=== PATIENT | female | born 1965 | race Caucasian/White ===

== ENCOUNTER 2022-12-25 05:59 | Inpatient (IN) ==
--- NOTE | 2022-12-04 14:22 | PAT Medication Instructions ---
Medication Instructions Date of Service December 04, 2022 Home Medications albuterol sulfate 90 mcg/actuation aerosol inhaler 1 inh inhalation QID PRN allopurinol 300 mg tablet 300 mg PO QAM alprazolam 1 mg tablet (Xanax) 1 mg PO TID PRN cyanocobalamin (vitamin B-12) 1,000 mcg tablet 1,000 mcg PO QAM cyclobenzaprine 10 mg tablet 10 mg PO BID duloxetine 60 mg capsule,delayed release (Cymbalta) 60 mg PO BID fluticasone propionate 50 mcg/actuation nasal spray,suspension 2 spray intranasa l QAM folic acid 1 mg tablet 1 mg PO QAM hydroxyzine HCl 25 mg tablet 25 mg PO BID PRN lisinopril 20 mg-hydrochlorothiazide 12.5 mg tablet 1 tab PO BID loratadine 10 mg tablet (Claritin) 10 mg PO QAM methocarbamol 500 mg tablet 500 mg PO TID multivit with [id number] 18 mg iron-800 mcg-150 mg tablet (Vitamin D3 Complete) 1 tab PO QAM omeprazole 40 mg capsule,delayed release 40 mg PO QAM pregabalin 150 mg capsule (Lyrica) 150 mg PO BID trazodone 100 mg tablet 100 mg PO HS vortioxetine 20 mg tablet (Trintellix) 20 mg PO QAM STOP taking 2 weeks before surgery multivit with [id number] 18 mg iron-800 mcg-150 mg tablet (Vitamin D3 Complete) 1 tab PO QAM DO NOT take the morning of surgery cyanocobalamin (vitamin B-12) 1,000 mcg tablet 1,000 mcg PO QAM cyclobenzaprine 10 mg tablet 10 mg PO BID folic acid 1 mg tablet 1 mg PO QAM lisinopril 20 mg-hydrochlorothiazide 12.5 mg tablet 1 tab PO BID loratadine 10 mg tablet (Claritin) 10 mg PO QAM methocarbamol 500 mg tablet 500 mg PO TID Take morning of surgery With a small sip of water, OTHERWISE NOTHING TO EAT OR DRINK AFTER MIDNIGHT: albuterol sulfate 90 mcg/actuation aerosol inhaler 1 inh inhalation QID PRN(use if needed; please bring with you to hospital day of surgery if possible) allopurinol 300 mg tablet 300 mg PO QAM alprazolam 1 mg tablet (Xanax) 1 mg PO TID PRN(if needed) duloxetine 60 mg capsule,delayed release (Cymbalta) 60 mg PO BID fluticasone propionate 50 mcg/actuation nasal spray,suspension 2 spray intranasal QAM hydroxyzine HCl 25 mg tablet 25 mg PO BID PRN(if needed) omeprazole 40 mg capsule,delayed release 40 mg PO QAM pregabalin 150 mg capsule (Lyrica) 150 mg PO BID vortioxetine 20 mg tablet (Trintellix) 20 mg PO QAM Take evening before surgery albuterol sulfate 90 mcg/actuation aerosol inhaler 1 inh inhalation QID PRN(if needed) alprazolam 1 mg tablet (Xanax) 1 mg PO TID PRN(if needed) cyclobenzaprine 10 mg tablet 10 mg PO BID duloxetine 60 mg capsule,delayed release (Cymbalta) 60 mg PO BID hydroxyzine HCl 25 mg tablet 25 mg PO BID PRN(if needed) lisinopril 20 mg-hydrochlorothiazide 12.5 mg tablet 1 tab PO BID methocarbamol 500 mg tablet 500 mg PO TID pregabalin 150 mg capsule (Lyrica) 150 mg PO BID trazodone 100 mg tablet 100 mg PO HS Other Notes If you have any questions please call us at [phone] or [phone] or [phone] or [phone]
--- NOTE | 2022-12-09 09:38 | Anesthesiology Consultation ---
Date of Service December 09, 2022 Assessment & Plan (1) Encounter for pre-operative examination: - COVID screening: Per assessment on 12/09: No known COVID-19 positive contacts or current COVID-19 related symptoms. Travel screen negative. At surgeon discretion if preop Covid testing being done. - Patient acceptable risk for surgery pending surgeon-ordered PCP preop evaluation (appt 12/14, [facility] - Tadeo Darling/Anna DUNLAP) Chart Review Chart Review: Patient seen in Pre Admission Testing Teaching & Discussion Pre-Anesthesia Teaching/Discussion Notes: Instructed NPO after midnight before surgery,except medications with 15 cc of water. Medication instructions provided according to the PAT guidelines. History Surgery Operation Date: 12/25/22 10:00 Proposed Procedures p L4-S1 Decompression and Fusion, Spinal Cord Monitoring - Prince Mendoza, Height/Weight Height: 5 ft 2 in Weight: 120.9 kg Allergies Allergy/AdvReac Type Severity Reaction Status Date / Time Penicillins Allergy Intermediate Hives Verified 12/04/22 12:12 Medications Home Medications Medication Instructions Recorded Confirmed Last Taken albuterol sulfate 90 mcg/actuation 1 inh inhalation QID PRN Wheezing 12/04/22 12/04/22 Unknown aerosol inhaler allopurinol 300 mg tablet 300 mg PO QAM 12/04/22 12/04/22 Unknown alprazolam 1 mg tablet (Xanax) 1 mg PO TID PRN Anxiety 12/04/22 12/04/22 Unknown cyanocobalamin (vitamin B-12) 1,000 mcg PO QAM 12/04/22 12/04/22 Unknown 1,000 mcg tablet cyclobenzaprine 10 mg tablet 10 mg PO BID 12/04/22 12/04/22 Unknown duloxetine 60 mg capsule,delayed 60 mg PO BID 12/04/22 12/04/22 Unknown release (Cymbalta) fluticasone propionate 50 2 spray intranasal QAM 12/04/22 12/04/22 Unknown mcg/actuation nasal spray,suspension folic acid 1 mg tablet 1 mg PO QAM 12/04/22 12/04/22 Unknown hydroxyzine HCl 25 mg tablet 25 mg PO BID PRN Itching 12/04/22 12/04/22 Unknown lisinopril 20 1 tab PO BID 12/04/22 12/04/22 Unknown mg-hydrochlorothiazide 12.5 mg tablet loratadine 10 mg tablet (Claritin) 10 mg PO QAM 12/04/22 12/04/22 Unknown methocarbamol 500 mg tablet 500 mg PO TID 12/04/22 12/04/22 Unknown multivit with 1 tab PO QAM 12/04/22 12/04/22 Unknown [id number]-#[id number] 18 mg iron-800 mcg-150 mg tablet (Vitamin D3 Complete) omeprazole 40 mg capsule,delayed 40 mg PO QAM 12/04/22 12/04/22 Unknown release pregabalin 150 mg capsule (Lyrica) 150 mg PO BID 12/04/22 12/04/22 Unknown trazodone 100 mg tablet 100 mg PO HS 12/04/22 12/04/22 Unknown vortioxetine 20 mg tablet 20 mg PO QAM 12/04/22 12/04/22 Unknown (Trintellix) Past Medical History Medical History Anemia Anxiety Asthma Atrial fibrillation Dx approximately 30 years ago, monitored by PCP Carpal tunnel syndrome left more than right Depression Fibromyalgia Hyperlipidemia mild > no meds Hypertension Morbid obesity Muscle spasm Neuropathy Feet, fingers Osteopenia Post traumatic stress disorder Presence of neurostimulator Jun 2022 ([facility]), instructed to bring remote DOS Sleep apnea CPAP (compliant) Spinal stenosis Thyroid nodule gets scanned yearly Exercise / Class Metabolic Activity III < 4 Walking/Shop/Light housework Past Surgical History Surgical History H/O removal of cyst from tailbone History of colonoscopy History of repair of rotator cuff right Hx of cervical biopsy Hx of fusion of cervical spine Past Anesthesia History No Hx of Anesthesia Complications and No Family Hx of Anesthesia Complications History of PONV No Hx of PONV and No Hx of Motion Sickness Social History Smoking Status: Former smoker Do You Dip or Chew Tobacco: No Smoking End Date: Quit 30 years ago Hx Alcohol Use: No Hx Substance Use: No substance use type: does not use Review of Systems Patient denies chest pain, shortness of breath, fever, chills, cough, wheezing, palpitations. Physical Exam Vital Signs VITALS BP 137/81 P 102 TEMP 98.0 SP02 99%RA RESP 18 PHYSICAL Mildly decreased cervical extension range of motion. Full TMJ range of motion. TMD 3 finger breaths (Difficult to palpate) Mallampati Score 3 Dentition: full upper denture, partial lower Lungs: clear throughout to auscultation Cardiac: regular rate and rhythm, no murmurs noted Spine: normal Carotid arteries: negative bruit Extremities: no edema Very thick neck Lab Results Anesthesia Preop Results Results Anesthesia Widget: WBC 8.82 K/ul (4.8-10.8) 12/09/22 Hgb 15.0 g/dl (12.0-16.0) 12/09/22 Hct 43.4 % (34.1-44.9) 12/09/22 Plt 267 K/uL (130-400) 12/09/22 Na 136 mmol/L (136-145) 12/09/22 K 4.4 mmol/L (3.5-5.1) 12/09/22 Cl 98 mmol/L (98-107) 12/09/22 CO2 30 mmol/L (21-32) 12/09/22 BUN 19 mg/dl (6-23) 12/09/22 Creat 0.80 mg/dl (0.6-1.2) 12/09/22 Glucose Level 147 mg/dl (70-99(Fasting)) H 12/09/22 PT 10.3 Seconds (9.0-12.0) 12/09/22 PTT 27.1 Seconds (21.0-31.0) 12/09/22 INR 1.0 (0.9-1.1) 12/09/22 Urine Color Yellow 12/09/22 Urine Appearance Clear (Clear) 12/09/22 Urine pH 6.5 (4.5-7.5) 12/09/22 Urine Specific [place] 1.013 (1.000-1.030) 12/09/22 Urine Protein Negative (Negative) 12/09/22 Urine Glucose (UA) Negative (Negative) 12/09/22 Urine Ketones Negative (Negative) 12/09/22 Urine Blood Negative (Negative) 12/09/22 Urine Nitrite Negative (Negative) 12/09/22 Urine Bilirubin Negative (Negative) 12/09/22 Urine Urobilinogen Negative (Negative) 12/09/22 Urine Leukocyte Esterase Trace (Negative) H 12/09/22 Urine WBC (Auto) 1-5 /hpf (0-5) 12/09/22 Urine RBC (Auto) 0-4 /hpf (0-4) 12/09/22 Urine Hyaline Casts (Auto) 1-5 /lpf (0-5) 12/09/22 Urine Epithelial Cells (Auto) 20-30 /lpf (0-5) H 12/09/22 Urine Bacteria (Auto) Negative (Negative) 12/09/22 Blood Type B Positive 12/09/22 Antibody Screen NEGATIVE 12/09/22 Testing Electrocardiogram Date: 06/29/22 Sinus tach at 104 bpm. Low voltage QRS. RBBB. Chest X-Ray Date: 06/29/22 FINDINGS: No pneumothorax. No pleural effusions. The cardiac silhouette is normal in size. Cervical spinal fusion hardware is noted. The lungs are clear. IMPRESSION: No acute process. COVID-19 Risk Screen Screening Information COVID-19 Screen Date: 12/09/22 Exposure 21 Days Family/Household +COVID Last 21 Days: No Exposure 10 Days Any COVID Exposure Last 10 Days: No Symptoms Last 10 Days Experienced COVID Sx Last 10 Days: No + COVID 0-90 Days COVID + in Last 0-90 Days: No
[2022-12-25] MEDS ORDERED: GABAPENTIN 600 MG DOSE PO SCH (06:00)
[2022-12-25] MEDS ORDERED: CLINDAMYCIN/D5W 900 MG/50 ML BAG IV SCH (06:00)
[2022-12-25] MEDS ORDERED: ACETAMINOPHEN 500 MG TAB PO SCH (06:00)
[2022-12-25] MEDS ORDERED: LR 15ML/HR IV SCH (06:00)
[2022-12-25] MEDS ORDERED: SUGAMMADEX SODIUM 200 MG/2 ML VIAL IV ONE (06:25)
[2022-12-25] MEDS ORDERED: fentaNYL citrate 100 MCG/2 ML VIAL ONE ×2 (06:37→10:21)
[2022-12-25] MEDS ORDERED: MIDAZOLAM HCL 1 MG/ML 2ML VIAL ONE (06:37)
[2022-12-25] MEDS ORDERED: LIDOCAINE 2% MPF LOCAL 5 ML VIAL INFIL ONE (06:37)
[2022-12-25] MEDS ORDERED: DEXAMETHASONE SOD INJ 4 MG/ML VIAL ONE ×2 (06:37→06:39)
[2022-12-25] MEDS ORDERED: ROCURONIUM BROMIDE 10 MG/ML 5 ML VIAL IV ONE ×3 (06:37→09:20)
[2022-12-25] MEDS ORDERED: PROPOFOL IV EMULSION 10 MG/ML 20 ML VIAL IV ONE (06:37)
[2022-12-25] MEDS ORDERED: LARYING-O-JET KIT (LTA) ONE (06:37)
[2022-12-25] MEDS ORDERED: ATROPINE SULFATE 0.1 MG/ML 10ML SYR IV PRN (07:01)
[2022-12-25] MEDS ORDERED: fentaNYL citrate 100 MCG/2 ML VIAL IV PRN (07:01)
[2022-12-25] MEDS ORDERED: ONDANSETRON INJ 2 MG/ML 2 ML VIAL IV PRN ×2 (07:01→13:27)
[2022-12-25] MEDS ORDERED: ePHEDrine sulfate 50 MG/ML AMP IV PRN (07:01)
[2022-12-25] MEDS ORDERED: DexMEDEtomidine HCL IV 100 MCG/ML VIAL IV ONE (07:02)
[2022-12-25] MEDS ORDERED: ceFAZolin 330 MG/ML 1 GM VIAL ONE (07:24)
[2022-12-25] MEDS ORDERED: BUPIVACAINE/EPINEPHRINE 0.25% 1:200,000 30 ML VIAL ONE (07:24)
--- NOTE | 2022-12-25 07:34 | History & Physical Bridge Note ---
Date of Service December 25, 2022 History & Physical Bridge Note I have examined the patient, reviewed the History & Physical and in the interval since the performance of the History & Physical I have noted the following changes of clinical significance: no changes noted
--- NOTE | 2022-12-25 07:35 | History & Physical Report ---
Date of Service December 25, 2022 Assessment & Plan (1) Neurogenic claudication due to lumbar spinal stenosis: Plan: L4-S1 decompression and fusion History of Present Illness Chief Complaint: Back and leg pain Primary Care Provider: Sammy Barrientos MD This is a 57-year-old female who presents with chronic persistent back and leg pain after failing extensive course of nonoperative care she is here for surgical invention. Allergies Allergy/AdvReac Type Severity Reaction Status Date / Time Penicillins Allergy Intermediate Hives Verified 12/25/22 06:25 Home Medications Medication Instructions Recorded Confirmed Type albuterol sulfate 90 mcg/actuation 1 inh inhalation QID PRN Wheezing 12/04/22 12/25/22 History aerosol inhaler allopurinol 300 mg tablet 300 mg PO QAM 12/04/22 12/25/22 History alprazolam 1 mg tablet (Xanax) 1 mg PO TID PRN Anxiety 12/04/22 12/25/22 History cyanocobalamin (vitamin B-12) 1,000 mcg PO QAM 12/04/22 12/25/22 History 1,000 mcg tablet cyclobenzaprine 10 mg tablet 10 mg PO BID 12/04/22 12/25/22 History duloxetine 60 mg capsule,delayed 60 mg PO BID 12/04/22 12/25/22 History release (Cymbalta) fluticasone propionate 50 2 spray intranasal QAM 12/04/22 12/25/22 History mcg/actuation nasal spray,suspension folic acid 1 mg tablet 1 mg PO QAM 12/04/22 12/25/22 History hydroxyzine HCl 25 mg tablet 25 mg PO BID PRN Itching 12/04/22 12/25/22 History lisinopril 20 1 tab PO BID 12/04/22 12/25/22 History mg-hydrochlorothiazide 12.5 mg tablet (Zestoretic) loratadine 10 mg tablet (Claritin) 10 mg PO QAM 12/04/22 12/25/22 History methocarbamol 500 mg tablet 500 mg PO TID 12/04/22 12/25/22 History multivit with 1 tab PO QAM 12/04/22 12/25/22 History [id number] 18 mg iron-800 mcg-150 mg tablet (Vitamin D3 Complete) omeprazole 40 mg capsule,delayed 40 mg PO QAM 12/04/22 12/25/22 History release pregabalin 150 mg capsule (Lyrica) 150 mg PO BID 12/04/22 12/25/22 History trazodone 100 mg tablet 100 mg PO HS 12/04/22 12/25/22 History vortioxetine 20 mg tablet 20 mg PO QAM 12/04/22 12/25/22 History (Trintellix) Past Med/Surg History Medical History Anemia Anxiety Asthma Atrial fibrillation Dx approximately 30 years ago, monitored by PCP Carpal tunnel syndrome left more than right Depression Fibromyalgia Hyperlipidemia mild > no meds Hypertension Morbid obesity Muscle spasm Neuropathy Feet, fingers Osteopenia Post traumatic stress disorder Presence of neurostimulator Jun 2022 ([facility]), instructed to bring remote DOS Sleep apnea CPAP (compliant) Spinal stenosis Thyroid nodule gets scanned yearly Surgical History H/O removal of cyst from tailbone History of colonoscopy History of repair of rotator cuff right Hx of cervical biopsy Hx of fusion of cervical spine Social History Smoking Status: Former smoker Smoking End Date: Quit 30 years ago; Second Hand Exposure: No; Do You Dip or Chew Tobacco: No; Tobacco Cessation Education Requested by Patient: No Hx Alcohol Use: No Hx Substance Use: No Preferred Language: Gambian Communication Ability: Effective County Nurse Required: No Beliefs That Will Affect Care: None Current Living Situation: Family Other Information That Helps Us Care for You: No Feels Safe at Home: Yes Safety Concerns: Feels Safe At This Time Assistive Devices: Cane, CPAP, Denture - Upper, Denture - Lower and Glasses Physical Exam Physical Exam: Patient is alert and oriented Heart regular rhythm Lungs clear Results & Data Results & Data ([place]) Vital Signs (Past 12 Hours) Vital Signs Temp Pulse Resp BP Pulse Ox O2 Del Method 12/25/22 06:31 36.9 C 109 H 18 161/97 H 94 Room Air 12/25/22 06:31 CPAP
[2022-12-25] MEDS ORDERED: ONDANSETRON INJ 2 MG/ML 2 ML VIAL ONE (08:18)
[2022-12-25] MEDS ORDERED: KETAMINE 50 MG/5 ML SYRINGE ONE ×2 (08:23→11:12)
[2022-12-25] MEDS ORDERED: FLOSEAL HEMOSTATIC MATRIX 10ML TOP ONE (08:33)
[2022-12-25] MEDS ORDERED: ePHEDrine sulfate 50 MG/ML SYR ONE (09:18)
[2022-12-25] MEDS ORDERED: PHENYLEPHRINE 100MCG/ML 5ML SYR ONE (09:18)
[2022-12-25] MEDS ORDERED: PHENYLEPHRINE HCL 10 MG/ML VIAL ONE (09:18)
[2022-12-25] MEDS ORDERED: GLYCOPYRROLATE 0.2 MG/ML VIAL ONE (09:18)
--- NOTE | 2022-12-25 09:56 | Operative Report ---
Post Operative Report Pre & Post Diagnosis Operation Date: 12/25/22 07:45 Pre-Op Diagnosis: Neurogenic Claudication due to Lumbar Spinal Stenosis Spondylolisthesis L4-L5 Morbid obesity Post-Op Diagnosis: Same I identified the patient and participated in the time-out.: Yes Procedure Operation Date: 12/25/22 07:45 Actual Procedures #1 lumbar decompression bilateral medial facetectomies and foraminotomies L3-L4, L4-5 and L5-S1. #2 posterior spinal fusion L4-L5 L5-S1. #3 placement posterior instrumentation L4-L5 L5-S1. #4 interbody fusion L4-L5 L5-S1. #5 placement of Spira 13 x 26 mm cage at L4-5 and 10 x 26 mm cage at L5-S1. #6 placement locally harvested morselized autograft in the posterior gutters. #7 placement of I factor model V toss interbody space and posterior gutters. Surgeon Prince Mendoza, DO [employer] Eliot Ellsworth Estimated Blood Loss 350 Findings See Below Patient is 5 foot 2 weighing over 122 kg with a BMI in excess of 49. Patient's body habitus did contribute to significant technical difficulty requiring her deepest retractors longer instruments in order to perform her procedure. This had at least 50% increased operative time. Specimens None Indications This is a 57-year-old female who presents above-mentioned diagnosis after failed extensive course of nonoperative care she is here for surgical invention. Description of Procedure Patient was met with identified informed consent obtained. Patient was then t aken to the operative suite underwent a patient placed in a prone position on the [place] table top [place]air frame. All bony prominences well-padded as inspected to ensure no external pressure placed upon them. At this time the lumbar spine was prepped and draped in normal sterile fashion. Sharp dissection with assistance of bradycardia was then performed down to and exposing the lamina and transverse processes of L4-L5 and S1 levels bilaterally. From a caudal cephalad fashion complete laminectomy L5 L4 and partial laminectomy L3 was performed including bilateral medial facetectomies and foraminotomies addressing severe spinal stenosis. Pedicle screws were then placed in L4-L5 and S1 levels bilaterally with assistance of fluoroscopy and the properly sized naa placed. By way of a transit foraminal approach and left knee discectomy of L5- S1 was performed endplates curetted to subcortical bleeding bone and a 10 x 26 mm spiral cage filled I factor tapped in position. At the proceeded L4-L5 and again by way of a transforaminal approach and left pleat discectomy was performed endplates curetted to subcortically bone and a 13 x 26 mm spiral cage with I factor tapped the position. The rods were then locked into final position bilaterally. The transverse processes of L for L5 and the sacral ala were burred to subcortically bone. I factor V V testing locally harvested morselized autograft was placed in the posterior gutters. 15 round VLADISLAV drain inserted. The incision was then closed with 1 Vicryl the fascia 2-0 Vicryl subcutaneously and 4 Monocryl for final skin closure. Steri-Strip sterile dressings placed. Patient waken taken to PACU in stable condition. Please note spinal cord monitoring visualized at the procedure no changes noted. Lastly Eliot Ellsworth was present at the entire surgeon while the patient positioning complex portion of the surgery and fascial closure. I attest to the content of the Intraoperative Record and any orders documented therein. Any exceptions are noted below.
--- NOTE | 2022-12-25 10:05 | Fluoroscopy Report ---
FL lumbar spine 2-3V CLINICAL HISTORY: L4-S1 DECOMPRESSION AND FUSION POSSIBLE INTERBODY COMPARISON STUDY: None. FLUOROSCOPY TIME: 31 seconds FLUOROSCOPY IMAGES: 2 EXPOSURE DOSE: 32.4 mGy FINDINGS: Posterior decompression and fusion from L4 through S1 with pedicle screws and rods. Hardwar e appears intact. Disc spacers are placed. IMPRESSION: Fluoroscopic assistance as above. ACT 112: Negative or not required by law. Electronically signed by: Samuel Fisher M.D. 12/25/2022 10:03 AM
[2022-12-25] MEDS: HYDROmorphone INJ 2 MG/ML SYR/VIAL IV PRN ×4 (10:50→11:07)
--- NOTE | 2022-12-25 11:17 | Anesthesiology Progress Note ---
Date of Service December 25, 2022 Anesthesia Post Procedure Vital Signs Vital Signs: Temp Pulse Pulse Resp BP Pulse Ox O2 Del Method 12/25/22 11:08 98 H 14 102/66 99 Nasal Cannula 12/25/22 10:55 97 H 14 113/69 95 Nasal Cannula 12/25/22 10:45 97 H 16 103/76 95 Oxymask 12/25/22 10:35 97 H 18 92/58 L 99 Oxymask 12/25/22 10:28 36.7 C 98 H 17 88/60 L 97 Oxymask 12/25/22 06:31 36.9 C 109 H 18 161/97 H 94 Room Air 12/25/22 06:31 CPAP O2 Flow Rate 12/25/22 11:08 3 12/25/22 10:55 3 12/25/22 10:45 5 12/25/22 10:35 5 12/25/22 10:28 5 12/25/22 06:31 12/25/22 06:31 Pain Intensity Back: Pain Intensity: 6 Transfer of Care Handoff Completed per policy Notes Mental Status: alert / awake / arousable and participated in evaluation Patient Amnestic to Procedure: Yes Nausea / Vomiting: adequately controlled Pain: adequately controlled Airway Patency, RR, SpO2: stable & adequate BP & HR: stable & adequate Hydration State: stable & adequate Anesthetic Complications: no major complications apparent and Pt Satisfied with anesthetic care
[2022-12-25] MEDS ORDERED: MAGNESIUM HYDROXIDE SUSP 30 ML UDC PO PRN (13:27)
[2022-12-25] MEDS ORDERED: METOCLOPRAMIDE HCL INJ 5 MG/ML 2 ML VIAL IV PRN (13:27)
[2022-12-25] MEDS ORDERED: ONDANSETRON 4 MG OD TAB PO PRN (13:27)
[2022-12-25] MEDS ORDERED: SOD PHOSPHATE/SOD BIPHOSPHATE ENEMA 132 ML BTL PR PRN (13:27)
[2022-12-25] MEDS ORDERED: DO NOT ADMINISTER FLU VACCINE PRN (13:27)
[2022-12-25] MEDS ORDERED: HYDROmorphone INJ 0.5 MG/0.5 ML SYR IV PRN (13:27)
[2022-12-25] MEDS ORDERED: ALPRAZolam 0.5 MG TABLET PO PRN (13:27)
[2022-12-25] MEDS ORDERED: ALUMINUM/MAGNESIUM SUSP 30 ML UDC PO PRN (13:27)
[2022-12-25] MEDS ORDERED: FAMOTIDINE 20 MG TAB PO PRN (13:27)
[2022-12-25] MEDS ORDERED: LACTATED RINGER'S 1,000 ML IV SCH (13:27)
[2022-12-25] MEDS ORDERED: hydrOXYzine HCl 25 MG TAB PO PRN (13:27)
[2022-12-25] MEDS ORDERED: ACETAMINOPHEN 1,000 MG/100 ML VIAL IV PRN (13:27)
[2022-12-25] MEDS ORDERED: ACETAMINOPHEN 500 MG TAB PO PRN (13:27)
[2022-12-25] MEDS ORDERED: NALOXONE HCL 0.4 MG/1 ML VIAL/CARP IV PRN (13:27)
[2022-12-25] MEDS ORDERED: diphenhydrAMINE Capsule 25 MG CAP PO PRN (13:27)
[2022-12-25] MEDS ORDERED: DO NOT ADMINISTER PNEUMOCOCCAL VACCINE PRN (13:27)
[2022-12-25] MEDS ORDERED: ALBUTEROL HFA 8 GM INHALER INH PRN (13:27)
[2022-12-25] MEDS ORDERED: LORazepam 2 MG/1 ML VIAL IV PRN (13:27)
[2022-12-25] MEDS ORDERED: bisacodyL 10 MG SUPP PR PRN (13:27)
[2022-12-25] MEDS ORDERED: PROMETHAZINE HCL 12.5 MG in SODIUM CHLORIDE 0.9% 50 ML IV PRN (13:27)
[2022-12-25] MEDS ORDERED: LORazepam 0.5 MG TAB PO PRN (13:27)
--- NOTE | 2022-12-25 14:15 | Hospitalist Consultation ---
Date of Consultation December 25, 2022 Assessment & Plan (1) Neurogenic claudication due to lumbar spinal stenosis: s/p lumbar decompression surgery performed by Dr Mendoza 12/25. Pain/PT/bowel management per primary orthopedic team (2) Lower abdominal pain: Unspecified etiology but ongoing for 2 weeks without change in bowels, nausea, vomiting, melena or urinary symptoms. Negative UA during this time. Continue to monitor with serial assessments. ? related to her back pathology. (3) Sinus tachycardia: Some post operative hypotension in PACU which resolved with IV fluid bolus Appears euvolemic currently. Continue IV fluids as ordered by primary team. EKG confirmed ST Given pre-operative HR also tachycardia suspect this is somewhat related to her anxiety/stress rather than volume status Continue to monitor (4) Anxiety: Continue trazodone 100 mg p.o. at bedtime Continue Trintellix Also on Cymbalta but she reports this is for nerve pain rather than anxiety Takes Xanax 1-2 times a day, will continue as PRN here (5) Hypertension: Did not take antihypertensives this morning. Restart lisinopril tomorrow with hold parameters Restart HCTZ POD#2 with hold parameters (6) Sleep apnea: CPAP HS May use own if family can bring it in (7) Gout: Continue allopurinol 300mg PO daily (8) Seasonal allergies: Continue loratadine 10 mg PO QAM (9) GERD (gastroesophageal reflux disease): Switch omeprazole for pantoprazole per hospital formulary Plan Thank you for the consult. We will continue to follow the patient alongside the primary orthopedic team with a.m. labs tomorrow. History of Present Illness Reason for Consultation: medical management Attending Physician: Prince Mendoza DO History of Present Illness Brittany Reyes is a 57 year old female who presents for elective lumbar decompression surgery performed by Dr Mendoza earlier today. Estimated blood loss 350 mL. She has not yet stood up from surgery and most of her [id number] symptoms were on exertion therefore difficult to assess her change in symptoms at this time. Symptoms prior to surgery include ambulatory dysfunction, muscle spasms, bilateral lumbar radiculopathy and weakness in her legs. Having more numbness on left L5 distribution currently post operatively. Passing flatus. Otherwise no acute concerns or questions. Allergies Allergy/AdvReac Type Severity Reaction Status Date / Time Penicillins Allergy Intermediate Hives Verified 01/27/23 06:25 Home Medications Medication Instructions Recorded Confirmed Type albuterol sulfate 90 mcg/actuation 1 inh inhalation QID PRN Wheezing 12/04/22 12/25/22 History aerosol inhaler allopurinol 300 mg tablet 300 mg PO QAM 12/04/22 12/25/22 History alprazolam 1 mg tablet (Xanax) 1 mg PO TID PRN Anxiety 12/04/22 12/25/22 History cyanocobalamin (vitamin B-12) 1,000 mcg PO QAM 12/04/22 12/25/22 History 1,000 mcg tablet cyclobenzaprine 10 mg tablet 10 mg PO BID 12/04/22 12/25/22 History duloxetine 60 mg capsule,delayed 60 mg PO BID 12/04/22 12/25/22 History release (Cymbalta) fluticasone propionate 50 2 spray intranasal QAM 12/04/22 12/25/22 History mcg/actuation nasal spray,suspension folic acid 1 mg tablet 1 mg PO QAM 12/04/22 12/25/22 History hydroxyzine HCl 25 mg tablet 25 mg PO BID PRN Itching 12/04/22 12/25/22 History lisinopril 20 1 tab PO BID 12/04/22 12/25/22 History mg-hydrochlorothiazide 12.5 mg tablet (Zestoretic) loratadine 10 mg tablet (Claritin) 10 mg PO QAM 12/04/22 12/25/22 History methocarbamol 500 mg tablet 500 mg PO TID 12/04/22 12/25/22 History multivit with 1 tab PO QAM 12/04/22 12/25/22 History [id number] 18 mg iron-800 mcg-150 mg tablet (Vitamin D3 Complete) omeprazole 40 mg capsule,delayed 40 mg PO QAM 12/04/22 12/25/22 History release pregabalin 150 mg capsule (Lyrica) 150 mg PO BID 12/04/22 12/25/22 History trazodone 100 mg tablet 100 mg PO HS 12/04/22 12/25/22 History vortioxetine 20 mg tablet 20 mg PO QAM 12/04/22 12/25/22 History (Trintellix) Patient History Medical History (Updated 12/26/22 @ 07:08 by Ventura Mcdonald MD) Anemia Anxiety Asthma Atrial fibrillation Dx approximately 30 years ago, monitored by PCP Carpal tunnel syndrome left more than right Depression Fibromyalgia GERD (gastroesophageal reflux disease) Gout Hyperlipidemia mild > no meds Hypertension Morbid obesity Muscle spasm Neuropathy Feet, fingers Osteopenia Post traumatic stress disorder Presence of neurostimulator Jun 2022 ([facility]), instructed to bring remote DOS Seasonal allergies Sleep apnea CPAP (compliant) Spinal stenosis Thyroid nodule gets scanned yearly Surgical History H/O removal of cyst from tailbone History of colonoscopy History of repair of rotator cuff right Hx of cervical biopsy Hx of fusion of cervical spine Social History Smoking Status: Former smoker Smoking End Date: Quit 30 years ago; Second Hand Exposure: No; Do You Dip or Chew Tobacco: No; Tobacco Cessation Education Requested by Patient: No Hx Alcohol Use: No Hx Substance Use: No Preferred Language: Bahamian Communication Ability: Effective Licensing Coordinator Required: No Beliefs That Will Affect Care: None Current Living Situation: Family Other Information That Helps Us Care for You: No Feels Safe at Home: Yes Safety Concerns: Feels Safe At This Time Assistive Devices: Cane Review of Systems Review of Systems: All systems reviewed & are unremarkable except as noted in HPI & below 2 week history lower abdominal pain. No change in bowel habit. Generalized aching. No urinary symptoms. She reports she was seen by her upsetter for the symptoms and found no cause. Urinalysis was unremarkable. Her symptoms have not changed significantly during this time and not getting worse. Physical Exam Constitutional: WD/WN, vitals as above Eyes: PERRL, conjunctivae normal, anicteric sclerae ENMT: external ear and nose normal, oropharynx normal Respiratory: normal respiratory effort, lungs clear to auscultation Cardiovascular: Rate/Rhythm: regular rhythm and + tachycardic Heart Sounds: no murmur Extremities: normal capillary refill; no calf tenderness and no pedal edema Gastrointestinal (Abdomen): Inspection/Auscultation: abdomen normal to inspection; abdomen not distended Percussion/Palpation: + abdomen tender (mild lower abdominal ) and abdomen soft; no guarding and abdomen not rigid Skin: no rashes, warm and dry Neurologic: moves all extremities (5/5 dorsi/plantarflexion b/l equal), awake and + confused Motor/Sensory: + sensory deficit (Left L5 distribution numbness) Psychiatric: A+Ox3, euthymic affect Results & Data Results & Data ([facility]) Vital Signs (Past 12 Hours) Vital Signs Temp Pulse Pulse Resp BP Pulse Ox O2 Del Method 12/25/22 13:32 36.8 C 104 H 18 119/78 97 Nasal Cannula 12/25/22 12:30 36.5 C 107 H 16 100/62 94 Nasal Cannula 12/25/22 12:00 105 H 16 105/81 97 Nasal Cannula 12/25/22 11:45 102 H 18 108/77 94 Nasal Cannula 12/25/22 11:35 104 H 15 117/80 96 Nasal Cannula 12/25/22 11:25 105 H 18 103/58 L 98 Nasal Cannula 12/25/22 11:05 98 H 14 102/66 99 Nasal Cannula 12/25/22 11:15 98 H 18 109/69 96 Nasal Cannula 12/25/22 10:55 97 H 14 113/69 95 Nasal Cannula 12/25/22 10:45 97 H 16 103/76 95 Oxymask 12/25/22 10:35 97 H 18 92/58 L 99 Oxymask 12/25/22 10:28 36.7 C 98 H 17 88/60 L 97 Oxymask 12/25/22 06:31 36.9 C 109 H 18 161/97 H 94 Room Air 12/25/22 06:31 CPAP O2 Flow Rate 12/25/22 13:32 2 12/25/22 12:30 3 12/25/22 12:00 3 12/25/22 11:45 3 12/25/22 11:35 3 12/25/22 11:25 3 12/25/22 11:05 3 12/25/22 11:15 3 12/25/22 10:55 3 12/25/22 10:45 5 12/25/22 10:35 5 12/25/22 10:28 5 12/25/22 06:31 12/25/22 06:31 PG Care Time/CCT Total # of Minutes Spent Total Time Spent with Patient: Total time spent is greater than 50% in coordination of care (as documented) at patient's floor/unit and/or counseling patient: Coding Level of Care Code INP/OBS CONSULT LVL 4, 60 MIN Diagnoses Neurogenic claudication due to lumbar spinal stenosis M48.062 Lower abdominal pain R10.30 Sinus tachycardia R00.0 Anxiety F41.9 Hypertension I10 Sleep apnea G47.30 Gout M10.9 Seasonal allergies J30.2 GERD (gastroesophageal reflux disease) K21.9
[2022-12-25] MEDS: METHOCARBAMOL 500 MG TABLET PO SCH ×2 (14:22→20:44)
[2022-12-25] MEDS ORDERED: CYCLOBENZAPRINE HCL 10 MG TAB PO PRN (14:46)
[2022-12-25] MEDS: HYDROmorphone INJ 1 MG/ML SYRINGE IV PRN ×2 (15:20→23:02)
[2022-12-25] MEDS: CLINDAMYCIN/D5W 600 MG/50 ML BAG IV SCH ×2 (15:21→23:05)
--- NOTE | 2022-12-25 17:54 | Electrocardiogram Report ---
Test Reason : Blood Pressure : / mmHG Vent. Rate : 107 BPM Atrial Rate : 107 BPM P-R Int : 172 ms QRS Dur : 110 ms QT Int : 356 ms P-R-T Axes : 057 074 034 degrees QTc Int : 475 ms Sinus tachycardia Low voltage QRS Right bundle branch block Abnormal ECG When compared with ECG of 29-JUN-2022 12:56, No significant change was found Confirmed by Sami Mckinnon ([id number]) on 12/25/2022 5:54:26 PM Referred By: Prince Mendoza Confirmed By:Adrien Mckinnon
[2022-12-25] MEDS: DOCUSATE SODIUM/SENNA 50/8.6MG TAB PO SCH (20:42)
[2022-12-25] MEDS: DULoxetine HCL 60 MG CAP PO SCH (20:43)
[2022-12-25] MEDS: PREGABALIN 150 MG CAP PO SCH (20:48)
[2022-12-25] MEDS ORDERED: traZODone HCL 100 MG TAB PO SCH (21:00)
[2022-12-25] MEDS ORDERED: CYCLOBENZAPRINE HCL 10 MG TAB PO SCH (21:00)
[2022-12-25] MEDS ORDERED: LISINOPRIL/HCTZ 20/12.5MG 1 TAB TAB PO SCH (21:00)
[2022-12-26] MEDS: POLYETHYLENE (MIRALAX) 17 GM PACK PO SCH ×4 (05:05→23:39)
[2022-12-26] MEDS: HYDROmorphone INJ 1 MG/ML SYRINGE IV PRN ×2 (05:09→21:58)
[2022-12-26] MEDS: METHOCARBAMOL 500 MG TABLET PO SCH ×3 (07:54→20:46)
[2022-12-26] MEDS: dexAMETHasone 6 MG in SYRINGE 0 ML IV SCH (07:54)
[2022-12-26] MEDS: allopurinoL 300 MG TAB PO SCH (07:55)
[2022-12-26] MEDS: CHOLECALCIFEROL 1,000 UNITS 25 MCG TAB PO SCH (07:55)
[2022-12-26] MEDS: DULoxetine HCL 60 MG CAP PO SCH ×2 (07:55→20:46)
[2022-12-26] MEDS: FOLIC ACID 1 MG TAB PO SCH (07:55)
[2022-12-26] MEDS: LORATADINE 10 MG TAB PO SCH (07:55)
[2022-12-26] MEDS: PANTOprazole 40 MG TAB PO SCH (07:55)
[2022-12-26] MEDS: CYANOCOBALAMIN (B-12) 500 MCG TABLET PO SCH (07:55)
[2022-12-26] MEDS: FLUTICASONE PROPIONATE NA SPR 16 GM BTL NAE SCH (07:56)
[2022-12-26] MEDS: PREGABALIN 150 MG CAP PO SCH ×2 (07:58→20:50)
[2022-12-26 08:22] LABS: Basophils # (auto) 0.02 K/uL (0-0.2); Basophils % (auto) 0.2 %; Eosinophils # (auto) 0.04 K/uL (0-0.50); Eosinophils % (auto) 0.3 %; Hematocrit (blood only) 35.6 % (37.0-47.0); Hemoglobin 11.7 g/dl (12.0-16.0); Immature Granulocytes # (auto) 0.07 K/uL (0.01-0.20); Immature Granulocytes % (auto) 0.6 %; Lymphocytes # (auto) 2.29 K/uL (1.2-3.4); Lymphocytes % (auto) 19.8 %; Mean Corpuscular Hemoglobin 32.6 pg (25.0-34.0); Mean Corpuscular Hgb Conc 32.9 g/dL (32.0-36.0); Mean Corpuscular Volume 99.2 fL (80.0-100.0); Mean Platelet Volume 9.9 fL (9.4-12.4); Monocytes # (auto) 0.77 K/uL (0.11-0.59); Monocytes % (auto) 6.7 %; Neutrophils # (auto) 8.38 K/uL (1.40-6.50); Neutrophils % (auto) 72.4 %; Platelet Count 217 K/uL (130-400); RDW Coefficient of Variation 13.6 % (11.5-14.5); RDW Standard Deviation 49.3 fL (36.4-46.3); Red Blood Count 3.59 M/uL (4.20-5.40); White Blood Count 11.57 K/ul (4.8-10.8)
--- NOTE | 2022-12-26 08:37 | Orthopedic Progress Note ---
Date of Service December 26, 2022 Assessment & Plan (1) Neurogenic claudication due to lumbar spinal stenosis: Plan: This time initiate physical therapy monitor VLADISLAV operatively discharge home Wednesday. Admission and Anticipated Discharge Date Admission Date: December 25, 2022 Subjective Back pain controlled left leg pain improved. She has some numbness to the left foot. Physical Exam Physical Exam: On exam patient is in bed. Appears comfortable. Is good strength testing. Results & Data ([facility]) Vital Signs (Past 12 Hours) Vital Signs Temp Pulse Pulse Resp BP Pulse Ox O2 Del Method 12/26/22 08:00 Room Air 12/26/22 07:25 36.8 C 104 H 18 112/76 99 Nasal Cannula 12/26/22 03:00 37 C 92 H 20 106/70 100 Nasal Cannula 12/25/22 23:02 36.8 C 95 H 20 103/64 99 Nasal Cannula 12/25/22 22:17 107 H 96 O2 Flow Rate 12/26/22 08:00 12/26/22 07:25 3 12/26/22 03:00 2 12/25/22 23:02 3 12/25/22 22:17 2
[2022-12-26 08:45] LABS: Calcium 9.4 mg/dl (8.5-10.1); Potassium 4.7 mmol/L (3.5-5.1)
[2022-12-26 08:51] LABS: BUN Creatinine Ratio 17.8 (10-20); Est GFR (Non-African American) 91.4 ml/min
[2022-12-26] MEDS ORDERED: lisinopril 20 MG TAB PO SCH (09:00)
[2022-12-26] MEDS: oxyCODONE HCL IR 5 MG TAB (IMMEDIATE RELEASE) PO PRN ×2 (09:45→17:20)
--- NOTE | 2022-12-26 12:09 | Hospitalist Progress Note ---
Date of Service December 26, 2022 Assessment & Plan (1) Neurogenic claudication due to lumbar spinal stenosis: Plan: s/p lumbar decompression surgery performed by Dr Mendoza 12/25. Postoperative day #1. Pain/PT/bowel management per primary orthopedic team (2) Lower abdominal pain: Plan: Unspecified etiology but ongoing for 2 weeks without change in bowels, nausea, vomiting, melena or urinary symptoms. Negative UA during this time. Supportive care . No acute findings (3) Sinus tachycardia: Plan: Some post operative hypotension in PACU which resolved with IV fluid bolus. Mild. No intervention necessary at this time. We will follow Continue to monitor (4) Anxiety: Plan: Continue trazodone 100 mg p.o. at bedtime. Continue Trintellix and Cymbalta. Takes Xanax 1-2 times a day, will continue as PRN here (5) Hypertension: Plan: Lisinopril switched to metoprolol due to ongoing mild tachycardia. (6) Sleep apnea: Plan: CPAP HS (7) Gout: Plan: Continue allopurinol 300mg PO daily. Stable (8) Seasonal allergies: Plan: Continue loratadine 10 mg PO QAM. stable (9) GERD (gastroesophageal reflux disease): Plan: Switched omeprazole for pantoprazole per hospital formulary Plan Anticipate eventual discharge to home per primary service Admission and Anticipated Discharge Date Admission Date: December 25, 2022 Subjective Alert and oriented. No distress. She has some postoperative back pain as expected. Postoperative day #1. Orthopedic entry noted. Hemoglobin stable at 11.7. She is now on room air. Medically stable at this time Review of Systems Review of Systems: Constitutional-no fever or chills ENT-no blurred vision, no double vision, no epistaxis, no sore throat Respiratory-no cough, no wheezing, no shortness of breath Cardiac-no palpitations, no chest pain, no syncope GI-no nausea, vomiting, diarrhea, melena, hematochezia -no urinary retention, no urinary incontinence, no dysuria, no hematuria Musculoskeletal-postoperative lumbar discomfort as expected Skin-no bruising, no rashes, no pruritus Neuro-no isolated weakness, no paresthesia, no weakness Psych-no depression, no anxiety Physical Exam Physical Exam: General-alert and oriented x3, no fevers, no chills HEENT-head atraumatic and normocephalic,pupils equal and reactive to light, extraocular muscles intact Neck-no lymphadenopathy or thyromegaly, trachea midline Chest-clear to auscultation percussion. No rales wheezing or rhonchi Cardiac-regular rate and rhythm, normal S1 and S2 Abdomen-normal bowel sounds, nontender, no hepatosplenomegaly Extremities-no cyanosis, clubbing, or edema Neuro-cranial nerves II through XII intact, motor and sensory function within normal limits, strength symmetrical , no focal deficits Psych-normal affect, normal mood Results & Data Results & Data ([facility]) Vital Signs (Past 12 Hours) Vital Signs Temp Pulse Resp BP Pulse Ox O2 Del Method O2 Flow Rate 12/26/22 08:00 Room Air 12/26/22 07:25 36.8 C 104 H 18 112/76 99 Nasal Cannula 3 12/26/22 03:00 37 C 92 H 20 106/70 100 Nasal Cannula 2 Laboratory Results 12/26/22 07:33 12/26/22 07:33 PG Care Time/CCT Total # of Minutes Spent Total Time Spent with Patient: Total time spent is greater than 50% in coordination of care (as documented) at patient's floor/unit and/or counseling patient: Coding Level of Care Code 63406 SUB INP/OBS CARE 3/50MIN Diagnoses Neurogenic claudication due to lumbar spinal stenosis M48.062 Lower abdominal pain R10.30 Sinus tachycardia R00.0 Anxiety F41.9 Hypertension I10 Sleep apnea G47.30 Gout M10.9 Seasonal allergies J30.2 GERD (gastroesophageal reflux disease) K21.9
[2022-12-26] MEDS: METOPROLOL TARTRATE 25 MG TAB PO SCH ×2 (13:03→20:44)
[2022-12-26] MEDS ORDERED: traZODone HCL 100 MG TAB PO PRN (18:08)
[2022-12-26] MEDS: traMADol HCL 50 MG TABLET PO PRN (20:43)
[2022-12-26] MEDS: DOCUSATE SODIUM/SENNA 50/8.6MG TAB PO SCH (20:45)
[2022-12-27] MEDS: HYDROmorphone INJ 1 MG/ML SYRINGE IV PRN ×2 (04:28→23:34)
[2022-12-27] MEDS: POLYETHYLENE (MIRALAX) 17 GM PACK PO SCH ×4 (05:14→23:00)
[2022-12-27] MEDS: traMADol HCL 50 MG TABLET PO PRN (08:14)
[2022-12-27] MEDS: allopurinoL 300 MG TAB PO SCH (08:18)
[2022-12-27] MEDS: CHOLECALCIFEROL 1,000 UNITS 25 MCG TAB PO SCH (08:18)
[2022-12-27] MEDS: METOPROLOL TARTRATE 25 MG TAB PO SCH ×2 (08:19→20:32)
[2022-12-27] MEDS: dexAMETHasone 6 MG in SYRINGE 0 ML IV SCH (08:19)
[2022-12-27] MEDS: CYANOCOBALAMIN (B-12) 500 MCG TABLET PO SCH (08:19)
[2022-12-27] MEDS: LORATADINE 10 MG TAB PO SCH (08:19)
[2022-12-27] MEDS: FLUTICASONE PROPIONATE NA SPR 16 GM BTL NAE SCH (08:19)
[2022-12-27] MEDS: FOLIC ACID 1 MG TAB PO SCH (08:19)
[2022-12-27] MEDS: VORTIOXETINE HYDROBROMIDE PO SCH (08:19)
[2022-12-27] MEDS: DULoxetine HCL 60 MG CAP PO SCH ×2 (08:19→20:32)
[2022-12-27] MEDS: METHOCARBAMOL 500 MG TABLET PO SCH ×3 (08:19→20:32)
[2022-12-27] MEDS: PANTOprazole 40 MG TAB PO SCH (08:19)
[2022-12-27] MEDS: hydroCHLOROthiazide 25 MG TAB PO SCH ×2 (08:19→20:30)
[2022-12-27] MEDS: PREGABALIN 150 MG CAP PO SCH ×2 (08:39→20:29)
--- NOTE | 2022-12-27 08:46 | Hospitalist Progress Note ---
Date of Service December 27, 2022 Assessment & Plan (1) Neurogenic claudication due to lumbar spinal stenosis: Plan: s/p lumbar decompression surgery performed by Dr Mendoza 12/25. Postoperative day #2. Pain/PT/bowel management per primary orthopedic team (2) Lower abdominal pain: Plan: Unspecified etiology but ongoing for 2 weeks without change in bowels, nausea, vomiting, melena or urinary symptoms. Negative UA during this time. Supportive care . No acute findings. Repeat U/A (low grade temp) (3) Sinus tachycardia: Plan: Some post operative hypotension in PACU which resolved with IV fluid bolus. Mild. No intervention necessary at this time. We will follow Lisinopril changed to metoprolol 12/26/22 (still mildly tachy) Continue to monitor (4) Anxiety: Plan: Continue trazodone 100 mg p.o. at bedtime. Continue Trintellix and Cymbalta. Takes Xanax 1-2 times a day, will continue as PRN here (5) Hypertension: Plan: Lisinopril switched to metoprolol due to ongoing mild tachycardia. BP today 107/73 Continue to monitor (6) Sleep apnea: Plan: CPAP HS (7) Gout: Plan: Continue allopurinol 300mg PO daily. Stable (8) Seasonal allergies: Plan: Continue loratadine 10 mg PO QAM. stable (9) GERD (gastroesophageal reflux disease): Plan: Switched omeprazole for pantoprazole per hospital formulary (10) Pain in left lower leg: Plan: - Left leg doppler - with no evidence of DVT Likely chronic Continue SCDs and encourage to continue up and OOB/ ambulation/ PT (11) Constipation due to opioid therapy: Plan: Encourage ambulation, fluid, continue miralax, senna, dulcolax supp as needed. Plan Anticipate eventual discharge to home per primary service possibly tomorrow Admission and Anticipated Discharge Date Admission Date: December 25, 2022 Subjective Patient was awake in bed. She states she was "stiff and sore" this AM. She is getting up and into the bathroom on her own. She had a low grade temp this AM and was given Tylenol. She denies any chest pain, SOB, Dyspnea and has been trying to use the incentive spirometer. She denies any cough or dysuria. She states she has some mild left lower leg discomfort, but thinks is chronic from her back. She is wearing the SCDs when she is not up and moving. She has not had a BM yet but admits to passing flatus. She denies any nausea or vomiting. Review of Systems Constitutional: + fever and + fatigue; no chills and no sweats Ear, Nose, Mouth, Throat: no nasal congestion, no post nasal drip and no sinus pain/pressure Respiratory: no cough, no chest congestion and no dyspnea Cardiovascular: no chest pain, no dyspnea, no palpitations and no syncope Gastrointestinal: + bloating and + constipation; no abdominal pain, no early satiety, no nausea and no vomiting Genitourinary: no dysuria, no difficulty urinating and no urinary frequency Integumentary: no rash, no lesions and no new lesions Endocrine: + fatigue; no polydipsia, no polyphagia, no polyuria and no cold intolerance Physical Exam Constitutional: well nourished and + obese Neck: trachea midline, no thyromegaly Respiratory: normal respiratory effort, lungs clear to auscultation Cardiovascular: RRR, no murmur, no edema Extremities: + edema; no calf tenderness Gastrointestinal (Abdomen): Inspection/Auscultation: + abdomen distended and normal bowel sounds; no abdominal wall ecchymosis Skin: no rashes, warm and dry surgical dressing intact on back, clean and dry Psychiatric: A+Ox3, euthymic affect Results & Data Results & Data ([facility]) Vital Signs (Past 12 Hours) Vital Signs Temp Pulse Resp BP Pulse Ox O2 Del Method 12/27/22 08:18 37.6 C H 103 H 18 107/73 94 Room Air Laboratory Results Abnormal lab results 12/25/22 Range/Units 06:14 Crossmatch See Detail PG Care Time/CCT Total # of Minutes Spent Total Time Spent with Patient: Total time spent is greater than 50% in coordination of care (as documented) at patient's floor/unit and/or counseling patient: Coding Level of Care Code 66705 SUB INP/OBS CARE 1/25MIN Diagnoses Neurogenic claudication due to lumbar spinal stenosis M48.062 Lower abdominal pain R10.30 Sinus tachycardia R00.0 Anxiety F41.9 Hypertension I10 Sleep apnea G47.30 Gout M10.9 Seasonal allergies J30.2 GERD (gastroesophageal reflux disease) K21.9 Pain in left lower leg M79.662 Constipation due to opioid therapy K59.03; T40.2X5A
[2022-12-27] MEDS ORDERED: HYDROCODONE/ACETAMOPHEN 5/325MG TAB PO PRN (11:19)
--- NOTE | 2022-12-27 11:22 | Orthopedic Progress Note ---
Date of Service December 27, 2022 Assessment & Plan (1) Neurogenic claudication due to lumbar spinal stenosis: Plan: At this time continue physical therapy monitor VLADISLAV output. We will trial hydrocodone or oxycodone for pain control. Hopefully discharge home tomorrow. Admission and Anticipated Discharge Date Admission Date: December 25, 2022 Subjective Back pain controlled leg pain improved Physical Exam Physical Exam: Patient is comfortable. She is good strength testing. Results & Data ([facility]) Vital Signs (Past 12 Hours) Vital Signs Temp Pulse Resp BP Pulse Ox O2 Del Method 12/27/22 08:18 37.6 C H 103 H 18 107/73 94 Room Air
[2022-12-27] MEDS: HYDROCODONE/ACETAMOPHEN 5/325MG TAB PO PRN ×3 (11:44→22:09)
--- NOTE | 2022-12-27 14:34 | Ultrasound Report ---
LEFT LOWER EXTREMITY VENOUS DOPPLER CLINICAL HISTORY: Left lower extremity pain and swelling. COMPARISON STUDY: No previous studies for comparison. TECHNIQUE: Sonography of the deep venous system of the left lower extremity was performed. Compressi on and augmentation were evaluated. FINDINGS: The left common femoral, superficial femoral and popliteal veins were compressible. Augmen tation was normal. Flow was shown within the deep calf vessels. IMPRESSION: No evidence of deep venous thrombus within the left lower extremity. ACT 112: Negative or not required by law. Electronically signed by: Adilson Maradiaga M.D. 12/27/2022 2:32 PM
[2022-12-27 19:09] LABS: Appearance Urine Clear (Clear); Bacteria Urine Automated 1+ (Negative); Bilirubin Urine Negative (Negative); Blood Urine Negative (Negative); Color Urine Yellow; Epithelial Cell Urine Auto >30 /lpf (0-5); Glucose Urine UA Negative (Negative); Ketones Urine Trace (Negative); Leukocyte Esterase Urine Negative (Negative); Nitrite Urine Negative (Negative); Protein Urine Trace (Negative); RBC Urine Automated 0-4 /hpf (0-4); Specific Gravity Urine 1.021 (1.000-1.030); Urobilinogen Urine Negative (Negative)
[2022-12-27] MEDS: DOCUSATE SODIUM/SENNA 50/8.6MG TAB PO SCH (20:32)
[2022-12-28] MEDS: POLYETHYLENE (MIRALAX) 17 GM PACK PO SCH (05:00)
[2022-12-28 06:47] LABS: Basophils # (auto) 0.04 K/uL (0-0.2); Basophils % (auto) 0.3 %; Eosinophils # (auto) 0.05 K/uL (0-0.50); Eosinophils % (auto) 0.4 %; Hematocrit (blood only) 32.6 % (37.0-47.0); Hemoglobin 10.9 g/dl (12.0-16.0); Immature Granulocytes # (auto) 0.07 K/uL (0.01-0.20); Immature Granulocytes % (auto) 0.6 %; Lymphocytes # (auto) 2.64 K/uL (1.2-3.4); Lymphocytes % (auto) 22.6 %; Mean Corpuscular Hemoglobin 32.3 pg (25.0-34.0); Mean Corpuscular Hgb Conc 33.4 g/dL (32.0-36.0); Mean Corpuscular Volume 96.7 fL (80.0-100.0); Mean Platelet Volume 9.9 fL (9.4-12.4); Monocytes # (auto) 1.02 K/uL (0.11-0.59); Monocytes % (auto) 8.7 %; Neutrophils # (auto) 7.84 K/uL (1.40-6.50); Neutrophils % (auto) 67.4 %; Platelet Count 215 K/uL (130-400); RDW Coefficient of Variation 13.3 % (11.5-14.5); RDW Standard Deviation 47.2 fL (36.4-46.3); Red Blood Count 3.37 M/uL (4.20-5.40); White Blood Count 11.66 K/ul (4.8-10.8)
[2022-12-28] MEDS: PREGABALIN 150 MG CAP PO SCH (07:36)
[2022-12-28] MEDS: HYDROCODONE/ACETAMOPHEN 5/325MG TAB PO PRN ×2 (07:36→12:33)
[2022-12-28] MEDS: METHOCARBAMOL 500 MG TABLET PO SCH ×2 (07:37→13:07)
[2022-12-28] MEDS: DULoxetine HCL 60 MG CAP PO SCH (07:45)
[2022-12-28] MEDS: METOPROLOL TARTRATE 25 MG TAB PO SCH (07:45)
[2022-12-28] MEDS: hydroCHLOROthiazide 25 MG TAB PO SCH (07:45)
[2022-12-28] MEDS: LORATADINE 10 MG TAB PO SCH (07:46)
[2022-12-28] MEDS: FOLIC ACID 1 MG TAB PO SCH (07:46)
[2022-12-28] MEDS: allopurinoL 300 MG TAB PO SCH (07:46)
[2022-12-28] MEDS: CYANOCOBALAMIN (B-12) 500 MCG TABLET PO SCH (07:47)
[2022-12-28] MEDS: CHOLECALCIFEROL 1,000 UNITS 25 MCG TAB PO SCH (07:47)
[2022-12-28] MEDS: PANTOprazole 40 MG TAB PO SCH (07:47)
[2022-12-28] MEDS: VORTIOXETINE HYDROBROMIDE PO SCH (07:48)
[2022-12-28] MEDS: dexAMETHasone 6 MG in SYRINGE 0 ML IV SCH (07:48)
[2022-12-28] MEDS: FLUTICASONE PROPIONATE NA SPR 16 GM BTL NAE SCH (07:48)
[2022-12-28 07:54] LABS: Calcium 9.4 mg/dl (8.5-10.1); Creatinine Clr Calc Pharmacy 96.7 ml/min; Est GFR (African American) 94.9 ml/min; Est GFR (Non-African American) 81.8 ml/min; Potassium 3.6 mmol/L (3.5-5.1)
--- NOTE | 2022-12-28 08:27 | Hospitalist Progress Note ---
Date of Service December 28, 2022 Assessment & Plan (1) Neurogenic claudication due to lumbar spinal stenosis: Plan: s/p lumbar decompression surgery performed by Dr Mendoza 12/25. Postoperative day #3. Pain/PT/bowel management per primary orthopedic team (2) Lower abdominal pain: Plan: Unspecified etiology but ongoing for 2 weeks without change in bowels, nausea, vomiting, melena or urinary symptoms. Negative UA during this time. Supportive care . No acute findings. Repeat U/A (low grade temp) - was normal Resolved, possibly was constipation related (3) Sinus tachycardia: Plan: Some post operative hypotension in PACU which resolved with IV fluid bolus. Mild. No intervention necessary at this time. We will follow Lisinopril changed to metoprolol 12/26/22 Heart rate now in the 80s Continue Metoprolol and follow up with PCP in 1-2 weeks (4) Anxiety: Plan: Continue trazodone 100 mg p.o. at bedtime. Continue Trintellix and Cymbalta. Takes Xanax 1-2 times a day, will continue as PRN here (5) Hypertension: Plan: Lisinopril switched to metoprolol due to ongoing mild tachycardia. BP today 116/75 and HR 89 (6) Sleep apnea: Plan: CPAP HS (7) Gout: Plan: Continue allopurinol 300mg PO daily. Stable (8) Seasonal allergies: Plan: Continue loratadine 10 mg PO QAM. stable (9) GERD (gastroesophageal reflux disease): Plan: Switched omeprazole for pantoprazole per hospital formulary Discharge back on home pantoprazole (10) Pain in left lower leg: Plan: - Left leg doppler - with no evidence of DVT Likely chronic Continue SCDs and encourage to continue up and OOB/ ambulation/ PT (11) Constipation due to opioid therapy: Plan: Encourage ambulation, fluid, continue miralax, senna, dulcolax supp as needed. Plan Anticipate eventual discharge to home per primary service possibly tomorrow Admission and Anticipated Discharge Date Admission Date: December 25, 2022 Subjective Patient was seen this AM while walking in the [place] with PT. She tells me that she finally had multiple BMs yesterday and has no abdominal pain or N/V. She does feel that every day she is improving slightly. She denies any cough, chest pain or dyspnea. Review of Systems Constitutional: + sweats and + fatigue; no chills Ear, Nose, Mouth, Throat: no nasal congestion, no post nasal drip and no sinus pain/pressure Respiratory: no cough, no chest congestion and no dyspnea Cardiovascular: no chest pain, no dyspnea, no palpitations and no syncope Gastrointestinal: no abdominal pain, no bloating, no early satiety, no nausea, no vomiting and no constipation Genitourinary: no dysuria, no difficulty urinating and no urinary frequency Integumentary: no rash, no lesions and no new lesions Endocrine: + fatigue; no polydipsia, no polyphagia, no polyuria and no cold intolerance Physical Exam Constitutional: well nourished and + obese Neck: trachea midline, no thyromegaly Respiratory: normal respiratory effort, lungs clear to auscultation Cardiovascular: RRR, no murmur, no edema Extremities: + edema; no calf tenderness Gastrointestinal (Abdomen): Inspection/Auscultation: + abdomen distended and normal bowel sounds; no abdominal wall ecchymosis Skin: no rashes, warm and dry Psychiatric: A+Ox3, euthymic affect Results & Data Results & Data ([facility]) Vital Signs (Past 12 Hours) Vital Signs Temp Pulse Resp BP BP Pulse Ox O2 Del Method 12/28/22 07:44 37.0 C 89 18 116/75 96 Room Air 12/27/22 20:28 36.8 C 84 14 113/77 97 Room Air Laboratory Results Abnormal lab results 12/27/22 12/28/22 12/28/22 Range/Units Unknown 06:09 06:09 WBC 11.66 H (4.8-10.8) K/ul RBC 3.37 L (4.20-5.40) M/uL Hgb 10.9 L (12.0-16.0) g/dl Hct 32.6 L (37.0-47.0) % RDW Std Deviation 47.2 H (36.4-46.3) fL Neut # (Auto) 7.84 H (1.40-6.50) K/uL Morris # (Auto) 1.02 H (0.11-0.59) K/uL Chloride 95 L (98-107) mmol/L Carbon Dioxide 36 H (21-32) mmol/L Glucose 119 H (70-99(Fasting)) mg/dl Urine Protein Trace H (Negative) Urine Ketones Trace H (Negative) Urine WBC (Auto) 5-10 H (0-5) /hpf U Epithel Cells (Auto) >30 H (0-5) /lpf Urine Bacteria (Auto) 1+ H (Negative) PG Care Time/CCT Total # of Minutes Spent Total Time Spent with Patient: Total time spent is greater than 50% in coordination of care (as documented) at patient's floor/unit and/or counseling patient: Coding Level of Care Code 51005 SUB INP/OBS CARE 2/35MIN Diagnoses Neurogenic claudication due to lumbar spinal stenosis M48.062 Lower abdominal pain R10.30 Sinus tachycardia R00.0 Anxiety F41.9 Hypertension I10 Sleep apnea G47.30 Gout M10.9 Seasonal allergies J30.2 GERD (gastroesophageal reflux disease) K21.9 Pain in left lower leg M79.662 Constipation due to opioid therapy K59.03; T40.2X5A
--- NOTE | 2022-12-28 09:59 | Discharge Summary ---
Date of Service December 28, 2022 Admission HPI Per Admitting Provider This is a 57-year-old female who presents with chronic persistent back and leg pain after failing extensive course of nonoperative care she is here for surgical invention. Principal Diagnosis Spinal stenosis with radiculopathy Discharge Data Allergies Allergy/AdvReac Type Severity Reaction Status Date / Time Penicillins Allergy Intermediate Hives Verified 12/25/22 06:25 Consultations 12/25/22 13:27 Consult Hospitalist Routine Procedures Performed Operation Date: 12/25/22 07:45 Actual Procedures p L4-S1 Decompression and Fusion, Spinal Cord Monitoring(Not Applicable) - Prince Mendoza DO Ordered Studies 12/25/22 07:45 FL lumbar spine 2-3V Routine 12/27/22 13:19 US venous doppler LE LT Urgent Hospital Course (1) Neurogenic claudication due to lumbar spinal stenosis: Patient with lumbar decompression fusion tolerated this well stable orthopedic for postop labor postop day 1 she was up and ambulating progress postop day #2 on postop 3 she is tolerating therapy VLADISLAV drain decreased probably. Pain controlled. Subsequent discharge home. Discharge orders and instructions found on the chart for further review. Total Time Total Time Spent Total Time Spent (In Minutes): 20 minutes Discharge Plan Discharge Items Patient Disposition: Home - Self-Care Reason For Visit: POST OP Discharge Diagnosis: Lumbar spinal stenosis with radiculopathy Activity: As commented below Non-emergency contact: Primary Care Provider Call non-emergency contact if: you have any medication questions Follow-up/Referrals: Sammy Barrientos MD [Primary Care Provider] - Diet: Regular Addtl Attending Provider Instructions: ACTIVITY RECOMMENDATIONS: SELF CARE INSTRUCTIONS AFTER THORACIC/LUMBAR FUSIONS 1. You may walk to your tolerance. It is good exercise for your legs and back. Expect some back and intermittent leg aches and pains. 2. You may perform "counter-top" level activities (make a sandwich, michelle with a project, etc.). 3. No bending or lifting of more than 10 pounds or back twisting of any nature (roll like a log when turning in bed). 4. You may ride in a car for 20-30 minutes at a time. No driving until after your first visit with your doctor. 5. Frequent changes of position and restricting sitting to 30 minutes at a time will help limit the amount of back spasms and stiffness you may experience. 6. You may discontinue the use of ambulatory aids (cane, crutches, etc.) once your strength and confidence allow. 7. 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 Do not take a tub bath, sit in a hot tub or go into a swimming pool until after your first recheck in the office. SPECIAL CARE INSTRUCTIONS: VERY IMPORTANT TO READ AND REVIEW A. Your surgical incision has been closed with a cosmetic suture under the skin that will dissolve in about 6 weeks. In 14 days, you can use a pair of clean scissors and cut the suture that is left outside of the skin at the ends of your incision. 1. The small skin tapes can be removed 7 days after surgery if they have not fallen off by that point. 2. You may keep the wound open to air as much as possible to promote healing after post-op day number 5 unless told otherwise by your doctor. 3. If you think the wound looks like it is becoming infected (redness or worsening drainage) and/or you are experiencing fever, chill or worsening back pain and muscle spasms, contact the office so that we may evaluate you as soon as possible. B. Complications are uncommon, but please contact us if you have any signs or symptoms of: 1. wound infection (fever higher than 102.5 degrees F, redness, separation of wound, drainage, or increasing pain from the incision) 2. blood clots in legs (pain, swelling, redness and warmth in legs) 3. urinary tract infection (fever higher than 102.5 degrees F, burning upon urination or increased frequency of urination) 4. nerve problems (inability to walk on your toes or heels, numbness, loss of bowel or bladder control) 5. any other symptoms that concern you C. Please call the office at if you have any concerns or questions about your operation or recovery. D. No smoking! Smoking drastically decreases the chance of a solid fusion. E. Do not take any anti-inflammatory medications (Indocin, Advil, Motrin, Aspirin, Naprosyn, etc.) as these may inhibit the chance of a solid fusion. Tylenol is okay to take for pain. MANAGING PAIN AFTER SPINAL SURGERY 1. Narcotic medication is intended for short-term use and will be provided for surgical pain. Surgical pain usually lasts for a period of 4-6 weeks. Narcotic medication includes Percocet, Vicodin, Darvocet, Tylenol #3 or Lortab. 2. Longer-term pain is more appropriately treated with non-narcotic medication such as Tylenol ES. 3. Muscle spasm is not appropriately treated with narcotics. Muscle relaxers such as Soma, Flexeril or Skelaxin can be used along with Tylenol ES. 4. Remember that we all live with some "aches and pains". This is not unusual or uncommon after an injury or as we get older. a. Back pain is expected and may include muscle spasms for 4 to 6 weeks after surgery. The pain should gradually improve. If the pain worsens for no apparent reason, please contact the office. b. Intermittent leg pain may also be experienced and should not be concerned about unless it worsens for no apparent reason. If so, please contact the office. 5. We will provide appropriate medication within the normal guidelines of their prescribed use. We will also be very cautious and aware of potential abuse and extended duration of patients' medication needs. a. Pain medications are for your comfort and to assist with sleep and rest so that the tissue can heal. They are not provided in order to return to normal activity and should not be used through the day. To do so or worsening pain at night can result from ongoing tissue damage and development of tolerance to the prescribed medicine. 6. Please allow 2-3 days to process refills. Prescriptions will not be mailed but must be picked up at the office. FOLLOW UP VISIT: Keep your scheduled follow-up appointment. Any questions, please call the office at . Pending Studies at Discharge: No Stand-Alone Forms: [facility] [employer], Pain - Opioid Pain Management, Smoking Cessation Medications and DC Order Prescriptions: New tramadol 50 mg tablet 50 mg PO Q6H PRN (Reason: pain, moderate) Qty: 30 0RF hydrocodone-acetaminophen 5-325 mg tablet 1 tab PO Q6H PRN (Reason: pain) Qty: 30 0RF Rx Instructions: 1 tab PO PRN; Continued cyclobenzaprine 10 mg Tablet 10 mg PO BID methocarbamol 500 mg Tablet 500 mg PO TID lisinopril-hydrochlorothiazide [Zestoretic] 20-12.5 mg Tablet 1 tab PO BID alprazolam [Xanax] 1 mg Tablet 1 mg PO TID PRN (Reason: Anxiety) cyanocobalamin (vitamin B-12) 1,000 mcg Tablet 1,000 mcg PO QAM omeprazole 40 mg Capsule,Delayed Release(Dr/Ec) 40 mg PO QAM trazodone 100 mg Tablet 100 mg PO HS folic acid 1 mg Tablet 1 mg PO QAM hydroxyzine HCl 25 mg Tablet 25 mg PO BID PRN (Reason: Itching) allopurinol 300 mg Tablet 300 mg PO QAM fluticasone propionate 50 mcg/actuation [place],Suspension 2 spray INTRANASAL QAM Rx Instructions: administer into each nostril loratadine [Claritin] 10 mg Tablet 10 mg PO QAM duloxetine [Cymbalta] 60 mg Capsule,Delayed Release(Dr/Ec) 60 mg PO BID pregabalin [Lyrica] 150 mg Capsule 150 mg PO BID Trintellix 20 mg Tablet 20 mg PO QAM Vitamin D3 Complete 18 mg iron-800 mcg-150 mg Tablet 1 tab PO QAM albuterol sulfate 90 mcg/actuation Hfa Aerosol Inhaler 1 inh INHALATION QID PRN (Reason: Wheezing) Discharge Orders: Discharge Order (Routine); Ordered 12/28/22 Ordered By: Prince Mendoza Admission Data Admit Date/Time: 12/25/22 10:02 Attending Provider: Prince Mendoza Admit Provider: Prince Mendoza Primary Care Provider: Sammy Barrientos Other Providers: Melvin Lantigua ; Dennise Abreu ; [place]ura Grant ; Kev Bower ; Antonio Rajan ; Joe Flores ; Ranjit Mistry ; Hilda Pride ; Tamara Pascual ; Pablito Taylor ; Pro Cardenas ; Mary Forman ; Jorge Hope ; Jesus Fair ; Argelia Laird ; Corie Ricketts ; Cleo Moss ; Eliseo Guzman ; Jacob Jon ; Misa Bustos ; Dennise De La O ; Victor M Jean-Bapt[place] ; Indra Osullivan ; [place]ura Mcdonald ; Luana Schmidt ; Manuel Kuo ; Grayson Early ; Farzaneh Kuhn ; Cuong Sanderson ; Catie Mancilla ; Jimmie Sommer ; Merissa Bosch ; Rosalino Malik ; Juan Carlos Simon ; Kaela Hurley ; Simone Correa ; Leeann Lopes Other Interventions: Discharge Summary Assessment (RN) Last Done: 12/28/22 09:52
== END 2022-12-28 16:34 | disposition home health service (06) | DRG 454 ==
LOC: ASU 05:59 → 3E 10:02